=== PATIENT | female | born 1960 | race Caucasian/White ===

== ENCOUNTER 2018-03-09 16:28 | Emergency (ER) | payer OTHER | END 2018-03-09 17:30 | disposition home or self-care (01) | LOC: E/R 16:28 | DX: H01.004 Unspecified blepharitis left upper eyelid (principal); H00.014 Hordeolum externum left upper eyelid; I10 Essential (primary) hypertension; E11.9 Type 2 diabetes mellitus without complications; J45.909 Unspecified asthma, uncomplicated; Z79.84 Long term (current) use of oral hypoglycemic drugs | CPT/HCPCS: 99283; Z7502 ==